=== PATIENT | male | born 1950 | race Caucasian/White ===

== ENCOUNTER 2024-07-03 09:45 | Outpatient (CLI) | payer MEDICARE, OTHER, SELFPAY ==
[2024-07-03 10:02] LABS: Basophils Absolute Auto 0.02 K/mm3 (0.00-0.10); Basophils Percent Auto 0.4 % (0.0-1.0); Eosinophils Absolute Auto 0.14 K/mm3 (0.02-0.50); Eosinophils Percent Auto 2.6 % (1.0-6.0); Hematocrit 40.7 % (37.0-46.0); Hemoglobin 13.8 g/dL (12.4-15.3); Immature Granulocyte Absolute 0.02 K/mm3 (0.00-0.00); Immature Granulocyte Percent A 0.4 % (0.0-0.0); Lymphocytes Absolute Auto 1.01 K/mm3 (1.10-4.50); Lymphocytes Percent Auto 18.7 % (18.0-42.0); Mean Corpuscular HGB Conc 33.9 g/dL (32-36); Mean Corpuscular Hemoglobin 32.1 pg (27.0-31.0); Mean Corpuscular Volume 94.7 fL (78.0-102.0); Mean Platelet Volume 9.2 fl (8.7-11.0); Monocytes Absolute Auto 0.52 K/mm3 (0.10-0.90); Monocytes Percent Auto 9.6 % (2.0-11.0); Neutrophils Absolute Auto 3.68 K/mm3 (1.70-7.20); Neutrophils Percent Auto 68.3 % (50.0-70.0); Platelet Count Result 231 K/mm3 (150-420); Red Cell Distribution Width 14.4 % (11.6-14.4); White Blood Count 5.4 K/mm3 (4.8-10.8)
[2024-07-03 11:21] LABS: Alanine Aminotransferase 28 U/L (16-63); Albumin Level 3.5 g/dL (3.4-5.0); Alkaline Phosphatase 123 U/L (46-116); Anion Gap 7 mmol/L (4-12); Aspartate Amino Transferase 15 U/L (15-37); Bilirubin,Total 0.5 mg/dL (0.00-1.00); Blood Urea Nitrogen 9 mg/dL (7-18); Calcium 8.9 mg/dL (8.5-10.1); Carbon Dioxide 31 mmol/L (21-32); Chloride 99 mmol/L (98-108); Estimated Glomerular Filt Rate > 60; Glucose 283 mg/dL (70-99); Osmolality Calculated 292 mOsm/kg (285-295); Potassium 4.4 mmol/L (3.5-5.1); Sodium 137 mmol/L (136-145); Total Protein 6.1 g/dL (6.4-8.2); Vitamin B12 357 pg/mL (193-986)
[2024-07-03 11:28] LABS: Folic Acid > 20.0 ng/mL (8.6->20)
[2024-07-03 11:48] LABS: Thyroid Stimulating Hormone Reflex 1.13 u/IU/mL (0.36-3.74)
== END 2024-07-03 09:46 | disposition home or self-care (01) ==
PROVIDERS: PCP Family Medicine; Visit Provider Family Medicine
DX: E53.8 Deficiency of other specified B group vitamins (principal); E03.9 Hypothyroidism, unspecified; R53.83 Other fatigue
CPT/HCPCS: 36415; 80053; 82607; 82746; 84443; 85025

== ENCOUNTER 2024-07-05 10:24 | Observation (INO) | payer MEDICARE, OTHER, SELFPAY ==
[2024-07-05] VITALS (27 sets, daily range): BP systolic 85–143; BP diastolic 60–78; PULSE 57–94; RESP 13–24; TEMP 36.1–36.4; O2SAT 90–97; BMI 26.8
--- NOTE | ~2024-07-05 | CT_ITS ---
CT head without contrast Indication: Syncope Technique: Serial scans were obtained through the brain without the administration of contrast. Dose reduction technique was used on this scan by utilizing automated exposure control and iterative recon struction technique. The dose-length product (DLP) was 681.00 mGy-cm. Findings: There is no evidence of intracranial hemorrhage, mass lesion, or acute infarct. The ventri cles and subarachnoid spaces are dilated, consistent with mild atrophy. Low attenuation regions are seen within the periventricular white matter bilaterally, likely representing changes from chronic mi crovascular ischemic disease. There is no evidence of edema, mass effect or midline shift. The visu alized paranasal sinuses and mastoid air cells are clear. Impression: No intracranial hemorrhage, mass, or acute infarct. Atrophy and chronic white matter changes, as above. Reviewed, dictated and finalized at location . Impression: No intracranial hemorrhage, mass, or acute infarct. Atrophy and chronic white matter changes, as above.
--- NOTE | ~2024-07-05 | XR_ITS ---
Portable chest x-ray Comparison: None Clinical History: Syncope Findings: Lungs are clear, without focal consolidation or pleural effusion. Cardiomediastinal silho uette is unremarkable. Bones and soft tissues are unremarkable, aside from right shoulder arthroplast y. Impression: Clear lungs. Reviewed, dictated and finalized at location . Impression: Clear lungs.
--- NOTE | ~2024-07-05 | US_ITS ---
EXAMINATION: US carotid duplex BI DATE: 07/06/2024 08:02 INDICATION: Syncope TECHNIQUE: Grayscale, color Doppler, and pulsed Doppler images of the cervical carotid arteries were obtained. The degree of vessel stenosis is placed in one of the following categories: normal, <50%, 5 0-69%, >=70% but less than near-occlusion, near-occlusion, or total occlusion. Note that percent sten osis relative to normal distal artery lumen diameter is indirectly measured from velocity measurement s as described by Patrick, et al. Radiology 2003; 229:340-346. Notes: Normal: Peak systolic velocity <125 centimeters/sec and no plaque <50%. Peak systolic velocity <125 ( EDV <40; ICA/CCA PSV ratio <2.0; used these factors only a tandem lesions or low cardiac output or co ntralateral disease) 50-69 %: PSV 125-230 (EDV 40-100; ratio 2-4) >= 70% but less than near occlusion: PSV greater than 230 (EDV > 100; ratio> 4.0) Near Occlusion: PSV that is variable; markedly narrowed lumen Occlusion: Absent flow on color/spectral Doppler and no lumen on jara scale. COMPARISON: None. FINDINGS: RIGHT: The right common carotid artery (CCA) peak systolic velocity (PSV) is 91 cm/s. The right internal car otid artery (ICA) PSV is 89 cm/s. The right ICA end-diastolic velocity (EDV) is 26 cm/s. The right IC A/CCA PSV ratio is 1.0. The external carotid artery (ECA) PSV is 68 cm/s. There is antegrade flow in the right vertebral artery. LEFT: The left CCA PSV is 89 cm/s. The left ICA PSV is 69 cm/s. The left ICA EDV is 17 cm/s. The left ICA/C CA PSV ratio is 0.78. The ECA PSV is 83 cm/s. There is antegrade flow in the left vertebral artery. IMPRESSION: 1. Less than 50% stenosis in the right internal carotid artery by sonographic criteria. 2. Less than 50% stenosis in the left internal carotid artery by sonographic criteria. Reviewed, dictated and finalized at location B. IMPRESSION: 1. Less than 50% stenosis in the right internal carotid artery by sonographic trina staton. 2. Less than 50% stenosis in the left internal carotid artery by sonographic twila jonas.
--- NOTE | ~2024-07-05 | CT_ITS ---
Clinical Indication: Pulmonary embolus CT Scan of the Chest with Contrast: Technique: Contiguous sections were acquired throughout the chest after intravenous administration of 100 cc of Omnipaque 350. Dose reduction technique was used on this scan by utilizing automated expos ure control and iterative reconstruction technique. The dose-length product (DLP) was 479.24 mGy-cm. Findings: There is no evidence of any significant mediastinal, hilar or axillary lymphadenopathy. There is no f illing defect in the pulmonary arterial tree to suggest pulmonary embolus. There is no evidence of ao rtic dissection or aneurysm. There is no evidence of pleural or pericardial effusion. The lungs are clear, aside from mild dependent atelectatic changes. Images through the upper abdomen reveal no abnormalities. Impression: No evidence of pulmonary embolus, aortic dissection, or aortic aneurysm. No significant pulmonary abnormality. Reviewed, dictated and finalized at [facility]. Impression: No evidence of pulmonary embolus, aortic dissection, or aortic aneurysm. No significant pulmonary abnormality.
--- NOTE | 2024-07-05 10:33 | ECG_ITS ---
Test Date: 2024-07-05 10:42:14 Measurements Intervals [place] Rate: 60 P: 35 ND: 196 QRS: -34 QRSD: 106 T: -5 QT: 453 QTc: 453 Interpretive Statements SINUS RHYTHM LEFT AXIS DEVIATION [QRS AXIS < -30] NONSPECIFIC T-WAVE ABNORMALITY No previous ECG available for comparison Electronically Signed On 07-06-2024 15:47:14 CDT by Isaac Veronica M.D.
--- NOTE | 2024-07-05 10:33 | ED.SYNCOPE ---
HPI - Syncope General Chief Complaint: Syncope Stated Complaint: Syncope Time Seen by Provider: 07/05/24 10:32 History of Present Illness HPI narrative: patient is 74 years old white male was walking to his room, started feeling dizzy, like his head is so cloudy, patient then slumped over his walker and staff assisted patient to down to the floor. patient does not recall the event,. Currently in the ED his main complaint is feeling dizzy. he reports sometime turning his head to different direction can make the dizziness worse, he denies any relieving factors. Patient reports having similar symptoms roughly 20 years ago secondary to DE. Related Data Home Medications Medication Instructions Recorded Confirmed aspirin 81 mg tablet,delayed 81 mg PO DAILY 06/04/24 07/05/24 release atorvastatin 80 mg tablet 80 mg PO DAILY 06/04/24 07/05/24 calcium carbonate 600 mg PO DAILY 06/04/24 07/05/24 donepezil 5 mg tablet 5 mg PO QHS 06/04/24 07/05/24 folic acid 1 mg tablet 1 mg PO DAILY 06/04/24 07/05/24 isosorbide mononitrate 30 mg 30 mg PO DAILY 06/04/24 07/05/24 tablet,extended release 24 hr lansoprazole 30 mg capsule,delayed 30 mg PO DAILY 06/04/24 07/05/24 release lisinopril 40 mg tablet 40 mg PO DAILY 06/04/24 07/05/24 metformin 500 mg tablet 500 mg PO BID 06/04/24 07/05/24 metoprolol succinate 100 mg 100 mg PO BID 06/04/24 07/05/24 tablet,extended release 24 hr nifedipine 30 mg tablet,extended 30 mg PO DAILY 06/04/24 07/05/24 release tamsulosin 0.4 mg capsule 0.4 mg PO DAILY 06/04/24 07/05/24 Allergies Allergy/AdvReac Type Severity Reaction Status Date / Time Penicillins Allergy Anaphylaxis Verified 07/05/24 10:38 Review of Systems Review of Systems: All systems reviewed & are unremarkable except as noted in HPI and below PMFSH Social History Social History Smoking status: Never smoker Exam Narrative: GENERAL APPEARANCE: WELL-DEVELOPED, WELL-NOURISHED LOOKS ILL, PALE, GRAYISH COLORATION TRYING TO KEEP HIS EYE CLOSED SKIN: PALE HEAD: NORMOCEPHALIC, NONTRAUMATIC EYES: CLEAR CONJUNCTIVA ENT: OROPHARYNX NORMAL, EARS NORMAL, NOSE NORMAL NECK: SUPPLE, NONTENDER CHEST AND RESPIRATORY: AIRWAY PATENT, NO RESPIRATORY DISTRESS, NO ACCESSORY MUSCLE USE HEART: REGULAR RATE/ BRADYCARDIA ABDOMEN: SOFT, NONTENDER, NO ORGANOMEGALY, QUIET BOWEL SOUNDS VASCULAR: NORMAL PERIPHERAL PULSES, NORMAL CAPILLARY REFILL. 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, NO GROSS MOTOR DEFICIT Course Vital Signs Vital signs: Vital Signs Temperature 36.1 C L 07/05/24 10:28 Pulse Rate 60 07/05/24 10:28 Respiratory Rate 20 07/05/24 10:28 Blood Pressure 114/72 07/05/24 10:28 Pulse Oximetry 93 07/05/24 10:28 Oxygen Delivery Nasal Cannula 07/05/24 10:28 Oxygen Flow Rate 4 07/05/24 10:28 Temperature 36.1 C L 07/05/24 10:28 Pulse Rate 58 L 07/05/24 11:16 Respiratory Rate 20 07/05/24 10:28 Blood Pressure 97/69 L 07/05/24 11:16 Pulse Oximetry 93 07/05/24 10:28 Oxygen Delivery Nasal Cannula 07/05/24 10:28 Oxygen Flow Rate 4 07/05/24 10:28 MDM - Syncope MDM Narrative Medical decision making narrative: PATIENT PRESENTS WITH DIZZINESS AND SYNCOPE A VITAL SIGNS ON ARRIVAL SHOWED NO ACUTE ABNORMALITIES PHYSICAL EXAMINATION SHOWED PALE SKIN, STILL COMPLAINING OF DIZZINESS LIKE CLOUDY BRAIN. HE DENIES ANY SPINNING, NAUSEA OR VOMITING OR CHEST PAIN OR SHORTNESS OF BREATH. DIFFERENTIAL DIAGNOSIS INCLUDE: CARDI
[2024-07-05 10:52] LABS: Base Excess ABG -1.8 mmol/L (0-2); HCO3 ABG 24.2 mmol/L (23-29); Oxygen Content ABG 17.3 %vol (16.0-22.0); Oxygen Saturation ABG 87.3 % (95-97); Oxyhemoglobin 86.6 % (94-100); PCO2 ABG 45.8 mmHg (35-45); PO2 ABG 58.1 mmHg (75-85); pH ABG 7.34 (7.35-7.45)
[2024-07-05 10:53] LABS: Device ROOM AIR; Modified Allen's Test Pass; Site Drawn RIGHT RADIAL
[2024-07-05 10:54] LABS: Basophils Absolute Auto 0.02 K/mm3 (0.00-0.10); Basophils Percent Auto 0.4 % (0.0-1.0); Eosinophils Absolute Auto 0.13 K/mm3 (0.02-0.50); Eosinophils Percent Auto 2.4 % (1.0-6.0); Hematocrit 39.6 % (37.0-46.0); Hemoglobin 13.4 g/dL (12.4-15.3); Immature Granulocyte Absolute 0.02 K/mm3 (0.00-0.00); Immature Granulocyte Percent A 0.4 % (0.0-0.0); Lymphocytes Absolute Auto 1.26 K/mm3 (1.10-4.50); Lymphocytes Percent Auto 23.1 % (18.0-42.0); Mean Corpuscular HGB Conc 33.8 g/dL (32-36); Mean Corpuscular Hemoglobin 32.3 pg (27.0-31.0); Mean Corpuscular Volume 95.4 fL (78.0-102.0); Mean Platelet Volume 9.2 fl (8.7-11.0); Monocytes Percent Auto 9.2 % (2.0-11.0); Neutrophils Absolute Auto 3.52 K/mm3 (1.70-7.20); Neutrophils Percent Auto 64.5 % (50.0-70.0); Platelet Count Result 250 K/mm3 (150-420); Red Blood Count 4.15 M/mm3 (4.70-6.10); Red Cell Distribution Width 14.1 % (11.6-14.4); White Blood Count 5.5 K/mm3 (4.8-10.8)
[2024-07-05 11:12] LABS: Partial Thromboplastin Time 23.3 Sec (23.9-30.70); Prothrombin Time 10.9 Seconds (9.50-12.1)
[2024-07-05] MEDS: SODIUM CHLORIDE 0.9% IV 1,000 ML 250 ML IV CONT (11:40)
[2024-07-05 11:50] LABS: Alanine Aminotransferase 29 U/L (16-63); Albumin Level 3.4 g/dL (3.4-5.0); Alkaline Phosphatase 117 U/L (46-116); Anion Gap 7 mmol/L (4-12); Aspartate Amino Transferase 14 U/L (15-37); Bilirubin,Total 0.5 mg/dL (0.00-1.00); Blood Urea Nitrogen 10 mg/dL (7-18); Calcium 8.7 mg/dL (8.5-10.1); Carbon Dioxide 29 mmol/L (21-32); Chloride 98 mmol/L (98-108); Estimated CRCL calculation 69 ml/min; Estimated Glomerular Filt Rate > 60; Glucose 286 mg/dL (70-99); NT Pro B Type Natriuretic Pept 37 pg/mL (0-125); Osmolality Calculated 287 mOsm/kg (285-295); Potassium 4.2 mmol/L (3.5-5.1); Sodium 134 mmol/L (136-145); Total Protein 6.2 g/dL (6.4-8.2)
--- NOTE | 2024-07-05 13:30 | PM.IMHP ---
H&P: HPI History of Present Illness Date/Time: 07/05/24 13:30 Chief Complaint: Syncope Narrative: This is a 74 year old male patient with history of HTN, prior CT x2 with stents, dementia, left retinal artery occlusion with resultant vision loss, type 2 diabetes and HLD who is currently at [facility] under SNF status for therapy related to vision and balance loss after retinal artery occlusion. Patient was discharged from [place] about a month ago and has been getting therapy at the residential since with goal of return home. This morning patient had color change, syncope with abnormal respiratory effort and went unresponsive. Rapid Covid at [facility] was negative. Patient evaluated in ER and found initially to have lower blood pressure and mild hypoxia on ABG. Patient's son states that patient has had syncope in the past, usually associated with [place]. Patient denies chest pain, shortness of breath or any current concerning symptoms. Patient was admitted for telemetry monitoring for possible dysrhythmia, continued IV hydration and further testing (Carotid Doppler/echocardiogram) for cause of syncope. D-Dimer was positive and CTA chest was negative for PE in the ER. Patient is on several antihypertensives which we will hold and monitor blood pressure response to such. Suspect that his medication caused significantly low blood pressure leading to syncope and collapse. Review of Systems Review of Systems: All systems reviewed & are unremarkable except as noted in HPI and below PMFSH Social History Social History Smoking status: Never smoker Smokeless tobacco user: chewing tobacco Second hand tobacco smoke exposure: No Alcohol intake: former Substance use: never Substance use type: does not use Do You Feel Safe in your Home?: Yes Lack of Transportation: No Lack of Food: Never True Current Housing: I Have Housing Concerned About Future Housing: No Difficulty Paying Gas/Electric Bills: No Difficulty Paying for Meds: No Currently Unemployed: No Education: High School Diploma/GED Difficulty w/ Childcare or Family Care: No Spiritual care concerns: No Meds Home Medications and Allergies Home Medications Medication Instructions Recorded Confirmed Type aspirin 81 mg tablet,delayed 81 mg PO DAILY 06/04/24 07/05/24 History release atorvastatin 80 mg tablet 80 mg PO DAILY 06/04/24 07/05/24 History donepezil 5 mg tablet 5 mg PO QHS 06/04/24 07/05/24 History escitalopram oxalate 5 mg tablet 5 mg PO DAILY #90 tabs 06/04/24 07/05/24 Rx (Lexapro) folic acid 1 mg tablet 1 mg PO DAILY 06/04/24 07/05/24 History lansoprazole 30 mg capsule,delayed 30 mg PO DAILY 06/04/24 07/05/24 History release lisinopril 40 mg tablet 40 mg PO DAILY 06/04/24 07/05/24 History metformin 500 mg tablet 500 mg PO BID 06/04/24 07/05/24 History metoprolol succinate 100 mg 100 mg PO BID 06/04/24 07/05/24 History tablet,extended release 24 hr mirabegron 25 mg tablet,extended 25 mg PO DAILY #90 tabs 06/04/24 07/05/24 Rx release 24 hr nifedipine 30 mg tablet,extended 30 mg PO DAILY 06/04/24 07/05/24 History release tamsulosin 0.4 mg capsule 0.4 mg PO DAILY 06/04/24 07/05/24 History ondansetron 4 mg disintegrating 4 mg PO Q8H PRN nausea and 06/28/24 07/05/24 Rx tablet vomiting #90 tabs isosorbide dinitrate 30 mg tablet 30 mg DAILY 07/05/24 07/05/24 History Allergies Allergy/AdvReac Type Severity Reaction Status Date / Time Penicillins Allergy Anaphylaxis Verified 07/05/24 10:38 Vital Signs Vital Signs - 24 hr 07/05/24 10:28 07/05/24 11:13 07/05/24 11:16 Temperature 36.1 C L Pulse Rate 60 59 L 58 L Respiratory Rate 20 Blood Pressure 114/72 105/64 97/69 L Pulse Oximetry 93 Oxygen Delivery Nasal Cannula Oxygen Flow Rate 4 07/05/24 11:16 07/05/24 11:1
[2024-07-05 13:48] LABS: Add Urine Microscopic? YES; Appearance Urine Clear (Clear); Bilirubin Urine Negative (Negative); Blood Urine Negative (Negative); Color Urine Yellow (Yellow); Glucose Urine UA 2+ (Negative); Ketones Urine Negative (Negative); Leukocyte Esterase Ur Negative LEU/UL (Negative); Nitrate Urine Negative (Negative); Protein Urine Trace (Negative); pH Urine 5.5 (5.0-8.0)
[2024-07-05 14:12] LABS: Bacteria Urine Rare /hpf; Mucus Urine Few /lpf; RBC Urine None seen /hpf (0-2); WBC Urine None seen /hpf (0-3)
[2024-07-05 14:18] LABS: Troponin I 5.6 ng/L (0.00-60.4)
--- NOTE | 2024-07-05 14:41 | PC.NURSE ---
Pt came up to the floor from the ER. Admitted for cardiac monitoring post syncopal episode. VSS, afebrile, A/O X2 walks with walker at [place]. Pt and family orientated to the call system and the TV control. Pt and family oriented to visiting hours and how to call for a rapid response.
[2024-07-05 15:01] LABS: Influenza A QL RT-PCR Negative (Negative); Influenza B QL RT-PCR Negative (Negative); RSV RNA, RT-PCR Negative (Negative); SARS-CoV-2 RNA PCR Negative (Negative)
[2024-07-05 15:06] LABS: Magnesium 1.6 mg/dL (1.8-2.4)
[2024-07-05] MEDS: SODIUM CHLORIDE 0.9% IV 1,000 ML 75 ML IV CONT (16:16)
[2024-07-05] MEDS: MAGNESIUM SULF 2 GM/WATER 50ML 2 GM/50 ML BAG IVPB (16:17)
[2024-07-05 17:12] LABS: Glucose Point of Care 241 mg/dl (65-105)
[2024-07-05] MEDS: INSULIN HUMAN LISPRO (*BKC) 1,000 UNITS/10 ML VIAL SUB-Q (17:12)
[2024-07-05 17:35] LABS: Thyroid Stimulating Hormone Reflex 0.98 u/IU/mL (0.36-3.74)
[2024-07-05] MEDS: DONEPEZIL HCL 5 MG TABLET PO (21:06)
[2024-07-05] MEDS: MELATONIN 5 MG TABLET PO (21:06)
[2024-07-05 21:15] LABS: Glucose Point of Care 222 mg/dl (65-105)
[2024-07-06] VITALS (8 sets, daily range): BP systolic 118–155; BP diastolic 68–89; PULSE 63–81; RESP 16; TEMP 36.4–36.5; O2SAT 92–94
[2024-07-06] MEDS: SODIUM CHLORIDE 0.9% IV 1,000 ML 75 ML IV CONT (05:39)
[2024-07-06 05:46] LABS: Basophils Absolute Auto 0.02 K/mm3 (0.00-0.10); Basophils Percent Auto 0.3 % (0.0-1.0); Eosinophils Absolute Auto 0.12 K/mm3 (0.02-0.50); Hemoglobin 12.5 g/dL (12.4-15.3); Immature Granulocyte Absolute 0.03 K/mm3 (0.00-0.00); Immature Granulocyte Percent A 0.5 % (0.0-0.0); Lymphocytes Absolute Auto 0.98 K/mm3 (1.10-4.50); Lymphocytes Percent Auto 16.3 % (18.0-42.0); Mean Corpuscular HGB Conc 33.8 g/dL (32-36); Mean Corpuscular Hemoglobin 31.8 pg (27.0-31.0); Mean Corpuscular Volume 94.1 fL (78.0-102.0); Mean Platelet Volume 8.9 fl (8.7-11.0); Neutrophils Absolute Auto 4.28 K/mm3 (1.70-7.20); Neutrophils Percent Auto 70.9 % (50.0-70.0); Platelet Count Result 200 K/mm3 (150-420); Red Blood Count 3.93 M/mm3 (4.70-6.10); Red Cell Distribution Width 14.1 % (11.6-14.4)
[2024-07-06 06:00] LABS: Alanine Aminotransferase 25 U/L (16-63); Albumin Level 3.1 g/dL (3.4-5.0); Alkaline Phosphatase 104 U/L (46-116); Anion Gap 6 mmol/L (4-12); Aspartate Amino Transferase 12 U/L (15-37); Bilirubin,Total 0.2 mg/dL (0.00-1.00); Blood Urea Nitrogen 10 mg/dL (7-18); Calcium 8.6 mg/dL (8.5-10.1); Carbon Dioxide 30 mmol/L (21-32); Chloride 101 mmol/L (98-108); Estimated CRCL calculation 95 ml/min; Estimated Glomerular Filt Rate > 60; Glucose 176 mg/dL (70-99); Magnesium 1.8 mg/dL (1.8-2.4); Osmolality Calculated 287 mOsm/kg (285-295); Sodium 137 mmol/L (136-145); Total Protein 5.7 g/dL (6.4-8.2)
[2024-07-06] MEDS: ATORVASTATIN 40 MG TABLET 80 MG PO (08:27)
[2024-07-06] MEDS: MIRABEGRON 25 MG ER TABLET PO (08:27)
[2024-07-06] MEDS: ENOXAPARIN 40 MG/0.4 ML SYRINGE SUB-Q (08:27)
[2024-07-06] MEDS: ESCITALOPRAM OXALATE 5 MG TABLET PO (08:27)
[2024-07-06] MEDS: FOLIC ACID 1 MG TABLET PO (08:28)
[2024-07-06] MEDS: METOPROLOL SUCCINATE EXT REL 50 MG TABCR 100 MG PO (08:28)
[2024-07-06] MEDS: PANTOPRAZOLE 40 MG TABLET PO (08:28)
[2024-07-06] MEDS: TAMSULOSIN HCL 0.4 MG CAPSULE PO (08:28)
[2024-07-06] MEDS: ASPIRIN 81 MG ENTERIC TABLET PO (08:28)
--- NOTE | 2024-07-06 09:54 | PM.IMPN ---
Progress Note: A&P Assessment and Plan (1) Syncope and collapse: Code(s): R55 - Syncope and collapse Status: Acute Assessment and Plan: Patient unresponsive with agonal breathing on EMS page out to group home Patient pale and reyes on arrival to ER Bradycardia and lower blood pressure noted Suspect moderate dehydration mixed with multiple antihypertensives led to syncope Admit to Med/Tele to monitor for dysrhythmia Order Carotid Doppler and Echocardiogram with bubble study but consider DC echo if we get medical records that are reassuring Prior history of syncope per patient's son, usually associated with dehydration and working hard in the heat Recent left retinal artery occlusion, no new or worsening focal neurologic findings Hold antihypertensives and slowly reintroduce Continue IV fluids overnight at low maintenance rate Recheck labs in the morning (2) Dizziness: Code(s): R42 - Dizziness and giddiness Status: Acute Assessment and Plan: See 1 (3) Hypoxia: Code(s): R09.02 - Hypoxemia Status: Acute Assessment and Plan: ABG with hypoxia on room air in ER, saturating well on 2 liters/minute on arrival to floor Wean as tolerated Check Covid/flu/RSV swab on admit--all negative May benefit from six minute walk test prior to discharge if not able to fully wean CTA chest and CXR unremarkable (4) CAD (coronary artery disease): Code(s): I25.10 - Atherosclerotic heart disease of [place] coronary artery without angina pectoris Status: Acute Assessment and Plan: Prior ID x2 with stenting each time, 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 Troponin normal x 2 without significant delta between draws and no chest pain Diagnosis history of HFrEF on prior diagnosis list but no echocardiogram on file and denies known CHF history Requesting records from [facility] regarding last Echo on file Metoprolol XL 100 mg BID may need to be reduced on discharge, ordered to resume 0900 on 07/06 at reduced daily dosing Lisinopril 40 mg Daily may need to be reduced on discharge, on hold for now Nifedipine and isosorbide also held for now, I would consider not resuming nifedipine or making it the last to resume (5) HTN (hypertension): Code(s): I10 - Essential (primary) hypertension Status: Acute Assessment and Plan: See above (6) HLD (hyperlipidemia): Code(s): E78.5 - Hyperlipidemia, unspecified Status: Acute Assessment and Plan: Continue statin (7) Dementia: Code(s): F03.90 - Unspecified dementia, unspecified severity, without behavioral disturbance, psychotic disturbance, mood disturbance, and anxiety Status: Acute Assessment and Plan: Family reports patient gets confused with location changes but generally not aggressive states he had good luck with melatonin in the past for sleep so we will order this Plan 74-year-old man [facility] with syncope. Blood pressure low on admission. Antihypertensives were held. He was given IV fluids and his symptoms have resolved. Carotid duplex was negative. Pending echo completion. Suspect this patient can discharge either later today or tomorrow back to SNF. Subjective Date/time seen: 07/06/24 09:54 Interval history: This is a 74 year old male patient with history of HTN, prior ID x2 with stents, dementia, left retinal artery occlusion with resultant vision loss, type 2 diabetes and HLD who is currently at [facility] under SNF status for therapy related to vision and balance loss after retinal artery occlusion. Patient was discharged from [place] about a month ago and has been getting therapy at the group home since with goal of return home. This morning patient had color change, syncope with abnormal respiratory effort and went unresponsive. 07/06: Patient is eating breakfast sitting on edge of bed in no acute distress. He
[2024-07-06 11:31] LABS: Glucose Point of Care 217 mg/dl (65-105)
[2024-07-06] MEDS: INSULIN HUMAN LISPRO (*BKC) 1,000 UNITS/10 ML VIAL SUB-Q (11:39)
--- NOTE | 2024-07-06 12:10 | PM.DS ---
DS: Admitting Diagnosis Discharge Date 07/06 Admitting Diagnosis syncope DS: Discharge Diagnosis Discharge Diagnosis (1) Syncope and collapse: Code(s): R55 - Syncope and collapse Status: Acute Assessment and Plan: Patient unresponsive with agonal breathing on EMS [facility] Patient pale and reyes on arrival to ER Bradycardia and lower blood pressure noted Suspect moderate dehydration mixed with multiple antihypertensives led to syncope Admit to Med/Tele to monitor for dysrhythmia Order Carotid Doppler and Echocardiogram with bubble study but consider DC echo if we get medical records that are reassuring Prior history of syncope per patient's son, usually associated with dehydration and working hard in the heat Recent left retinal artery occlusion, no new or worsening focal neurologic findings Hold antihypertensives and slowly reintroduce Continue IV fluids overnight at low maintenance rate Recheck labs in the morning (2) Dizziness: Code(s): R42 - Dizziness and giddiness Status: Acute Assessment and Plan: See 1 (3) Hypoxia: Code(s): R09.02 - Hypoxemia Status: Acute Assessment and Plan: ABG with hypoxia on room air in ER, saturating well on 2 liters/minute on arrival to floor Wean as tolerated Check Covid/flu/RSV swab on admit--all negative May benefit from six minute walk test prior to discharge if not able to fully wean CTA chest and CXR unremarkable (4) CAD (coronary artery disease): Code(s): I25.10 - Atherosclerotic heart disease of [place] coronary artery without angina pectoris Status: Acute Assessment and Plan: Prior HI x2 with stenting each time, 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 Troponin normal x 2 without significant delta between draws and no chest pain Diagnosis history of HFrEF on prior diagnosis list but no echocardiogram on file and denies known CHF history Requesting records from [facility] regarding last Echo on file Metoprolol XL 100 mg BID may need to be reduced on discharge, ordered to resume 0900 on 07/06 at reduced daily dosing Lisinopril 40 mg Daily may need to be reduced on discharge, on hold for now Nifedipine and isosorbide also held for now, I would consider not resuming nifedipine or making it the last to resume (5) HTN (hypertension): Code(s): I10 - Essential (primary) hypertension Status: Acute Assessment and Plan: See above (6) HLD (hyperlipidemia): Code(s): E78.5 - Hyperlipidemia, unspecified Status: Acute Assessment and Plan: Continue statin (7) Dementia: Code(s): F03.90 - Unspecified dementia, unspecified severity, without behavioral disturbance, psychotic disturbance, mood disturbance, and anxiety Status: Acute Assessment and Plan: Family reports patient gets confused with location changes but generally not aggressive states he had good luck with melatonin in the past for sleep so we will order this Plan 74-year-old man who presents from [facility] as a SNF patient with syncope. Blood pressure low on admission. Antihypertensives were held. He was given IV fluids and his symptoms have resolved. Carotid duplex was negative. Pending echo completion. Suspect this patient can discharge either later today or tomorrow back to SNF. DS: Summary Hospital Course Reason for hospitalization: syncope Hospital Course: This is a 74 year old male patient with history of HTN, prior HI x2 with stents, dementia, left retinal artery occlusion with resultant vision loss, type 2 diabetes and HLD who is currently at [facility] under SNF status for therapy related to vision and balance loss after retinal artery occlusion. Patient was discharged from [place] about a month ago and [facility] with goal of return home. This morning patient had color change, syncope with abnormal respiratory effort and
[2024-07-06] MEDS: lisinopriL 20 MG TABLET PO (12:54)
--- NOTE | 2024-07-06 13:25 | PC.NURSE ---
Patient discharging back to and Rehab. Report called to Sheri BLANCO. 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
--- NOTE | 2024-07-06 14:05 | PC.NURSE ---
Patient discharging back to [facility] and rehab. IV site removed, tip intact. Dressing applied to site. All belongings gathered and sent back to [facility] with patient. All discharge instructions send with patient. Report called to Sheri at [facility], denies any questions at this time. Patient left floor via wheelchair accompanied by [facility] aid. Denies any questions at discharge.
--- NOTE | 2024-07-08 13:43 | PC.NURSE ---
Discharge call back, to skilled nursing, no quetions regarding dc orders sent and faxed to skilled nursing
== END 2024-07-06 14:05 ==
LOC: CHSED 13:00 → CHS2ND 13:18
PROVIDERS: Nurse Practitioner; Admitting Provider Internal Medicine; Emergency Provider Emergency Medicine; PCP Family Medicine; Visit Provider Internal Medicine
DX: R55 Syncope and collapse (principal); R09.02 Hypoxemia; I65.23 Occlusion and stenosis of bilateral carotid arteries; I10 Essential (primary) hypertension; I25.2 Old myocardial infarction; I25.10 Atherosclerotic heart disease of native coronary artery without angina pectoris; F03.90 Unspecified dementia, unspecified severity, without behavioral disturbance, psychotic disturbance, mood disturbance, and anxiety; Z95.5 Presence of coronary angioplasty implant and graft; E11.9 Type 2 diabetes mellitus without complications; E78.5 Hyperlipidemia, unspecified; F17.220 Nicotine dependence, chewing tobacco, uncomplicated; Z79.82 Long term (current) use of aspirin; Z79.84 Long term (current) use of oral hypoglycemic drugs; Z20.822 Contact with and (suspected) exposure to COVID-19
CPT/HCPCS: 36415; 36600; 70450; 71045; 71275; 80053; 81001; 82805; 82948; 83735; 83880; 84443; 84484; 85025; 85380; 85610; 85730; 87637; 93005; 93880; 96361; 96365; 96366; 96372; 99285; A9270; G0378; J1650; J1815; J3475; J7030; Q9967

== ENCOUNTER 2024-07-27 09:10 | Emergency (ER) | payer MEDICARE, OTHER, SELFPAY ==
[2024-07-27] VITALS (32 sets, daily range): BP systolic 103–133; BP diastolic 63–77; PULSE 71–90; RESP 14–24; TEMP 36.7–37; O2SAT 85–97
--- NOTE | ~2024-07-27 | CT_ITS ---
CTA chest PE protocol Ordering provider: Anil Garcia MD History: 74 years Male with . hypoxia, syncopal episode, + d-dimer . Comparison: None. Technique: CT angiogram chest was performed following timed intravenous injection of contrast. Thin s lice axial images and reformatted coronal images were obtained. Three dimensional reformatted images of the chest were also obtained using a [employer] workstation. . Automated exposure control and iterati ve reconstruction technique were employed. The dose-length product was 597.91 mGy-cm. 100 mL Omnipaqu e 350 was given IV. Findings: PULMONARY ARTERIES: No pulmonary embolus. VISUALIZED THORACIC INLET: Normal. MEDIASTINUM: Aorta/coronary arteries: Mild atheromatous disease. Heart/other: The heart is not enlarged. Lymph nodes: No mediastinal or hilar adenopathy. LUNGS: No pulmonary nodules or masses. No infiltrates or effusions. No pneumothorax. VISUALIZED UPPER ABDOMEN: the visualized upper abdomen is normal. MUSCULOSKELETAL: Soft tissues: The superficial soft tissues are normal. Bones: Age appropriate degenerative changes of the spine. IMPRESSION: 1. No pulmonary embolism. 2. No acute cardiopulmonary pathology. Reviewed, dictated and finalized at location A.
--- NOTE | ~2024-07-27 | CT_ITS ---
CT brain wo con Ordering provider: Anil Garcia MD History: 74 years Male with . syncopal episode today/this morning . Comparison: July 05, 2024. Technique: CT of the head without contrast. Additional reduction technique utilized.The dose-length product was 681 mGy-cm. FINDINGS: BRAIN PARENCHYMA AND CSF SPACES: Mild leukoaraiosis and diffuse cortical atrophy. Mild atheromatous d isease. No midline shift, mass effect or hemorrhage. The brain parenchyma and CSF spaces are otherwi se normal. VISUALIZED PARANASAL SINUSES: Well aerated. MASTOIDS: Well aerated. BONES: The bones appear intact. SOFT TISSUES: Visualized nasopharynx is normal. Superficial soft tissues are normal. IMPRESSION: No acute intracranial findings. Reviewed, dictated and finalized at location A.
--- NOTE | 2024-07-27 09:25 | ECG_ITS ---
Test Date: 2024-07-27 09:30:11 Measurements Intervals [place] Rate: 76 P: 51 ND: 194 QRS: -9 QRSD: 106 T: 1 QT: 422 QTc: 477 Interpretive Statements SINUS RHYTHM DELAYED PRECORDIAL R/S TRANSITION BORDERLINE ST-T WAVE ABNORMALITY- INFERIOR LEADS BASELINE WANDER- II, AVF, V1-V6 BORDERLINE ECG Compared to ECG 07/05/2024 10:42:14 Left-axis deviation no longer present Electronically Signed On 07-27-2024 10:01:02 CDT by Pérez Garcia D.O.
--- NOTE | 2024-07-27 09:28 | ED.SYNCOPE ---
HPI - Syncope General Chief Complaint: Syncope Stated Complaint: syncope Time Seen by Provider: 07/27/24 09:27 Source: EMS Mode of arrival: EMS Limitations: no limitations and dementia History of Present Illness HPI narrative: 74 year old male arrives to the Emergency Department via EMS from [facility]. Patient was sitting at breakfast table after eating and had syncopal episode. Patient was diaphoretic. He had no complaints prior. EMS was called and found patient diaphoretic. His FSBS was 251. Patient has a history of dementia. Patient is still somewhat clammy on arrival. His O2 sats were upper 80's. He was placed on O2 4 L and sat 94%. He denies any problems. He states he does not know where he is at, but denies any pain. States no headache, visual changes, chest pain, shortness of breath, nausea, vomiting, diarrhea. Denies any problems. MD complaint: loss of consciousness Onset (ago): minute(s) Prodromal symptoms: none Witnessed: Yes - by Other ([facility] staff) Context: at rest Injuries sustained associated with event: none Current symptoms: none Treatments prior to arrival: none Related Data Home Medications Medication Instructions Recorded Confirmed aspirin 81 mg tablet,delayed 81 mg PO DAILY 06/04/24 07/27/24 release atorvastatin 80 mg tablet 80 mg PO DAILY 06/04/24 07/27/24 donepezil 5 mg tablet 10 mg PO QHS 06/04/24 07/27/24 folic acid 1 mg tablet 1 mg PO DAILY 06/04/24 07/27/24 lansoprazole 30 mg capsule,delayed 30 mg PO BID 06/04/24 07/27/24 release metformin 500 mg tablet 500 mg PO BID 06/04/24 07/27/24 isosorbide dinitrate 30 mg tablet 30 mg PO DAILY 07/05/24 07/27/24 escitalopram oxalate 20 mg tablet 20 mg PO DAILY 07/06/24 07/27/24 (Lexapro) triamcinolone acetonide 0.025 % 1 applic topical BID 07/23/24 07/27/24 topical cream Allergies Allergy/AdvReac Type Severity Reaction Status Date / Time Penicillins Allergy Anaphylaxis Verified 07/27/24 09:32 Review of Systems Review of Systems: All systems reviewed & are unremarkable except as noted in HPI and below Constitutional: Constitutional: Reports as per HPI, Reports no additional constitutional complaints, Denies chills, Denies fever(s) and Denies weakness Eyes: Eyes: Reports as per HPI and Denies change in vision ENT: Reports system reviewed and no additional complaints, except as documented Cardiovascular: Cardiovascular: Reports as per HPI and Denies chest pain Respiratory: Respiratory: Reports as per HPI, Denies cough and Denies dyspnea Gastrointestinal: Gastrointestinal: Reports as per HPI, Denies abdominal pain, Denies diarrhea, Denies nausea and Denies vomiting Genitourinary: Genitourinary: Reports no additional male genitourinary complaints, Denies dysuria and Denies urinary frequency Musculoskeletal: Musculoskeletal: Reports no additional musculoskeletal complaints and Denies myalgias Integumentary/Breasts: Skin/Breast: Reports system reviewed and no additional complaints, except as docu Neurologic: Reports system reviewed and no additional complaints, except as documented, Denies headache(s), Denies focal weakness, Denies numbness and Denies weakness [facility] Social History Social History Smoking status: Never smoker Smokeless tobacco user: chewing tobacco Second hand tobacco smoke exposure: No Alcohol intake: former Substance use: never Substance use type: does not use Do You Feel Safe in your Home?: Yes Lack of Transportation: No Lack of Food: Never True Current Housing: I Have Housing Concerned About Future Housing: No Difficulty Paying Gas/Electric Bills: No Difficulty Paying for Meds: No Currently Unemployed: No Education: High School Diploma/GED Difficulty w/ Childcare or Family Care: No Spiritual care concerns: No Exam Const: General: healthy appearing, no acute distress and alert Nutritional Appearance: well n
[2024-07-27 10:04] LABS: Base Excess ABG -0.2 mmol/L (0-2); Carboxyhemoglobin 0.1 % (0-1.5); HCO3 ABG 25.8 mmol/L (23-29); Methemoglobin ABG 0.4 % (0-1.5); Oxygen Content ABG 18.9 %vol (16.0-22.0); Oxygen Saturation ABG 96.7 % (95-97); Oxyhemoglobin 96.2 % (94-100); PO2 ABG 107.2 mmHg (75-85); Reduced Hemoglobin 3.3 % (0-1.5); pH ABG 7.36 (7.35-7.45)
[2024-07-27 10:06] LABS: Basophils Absolute Auto 0.02 K/mm3 (0.00-0.10); Basophils Percent Auto 0.3 % (0.0-1.0); Eosinophils Percent Auto 1.6 % (1.0-6.0); Hematocrit 39.6 % (37.0-46.0); Hemoglobin 13.4 g/dL (12.4-15.3); Immature Granulocyte Absolute 0.02 K/mm3 (0.00-0.00); Immature Granulocyte Percent A 0.3 % (0.0-0.0); Lymphocytes Absolute Auto 1.02 K/mm3 (1.10-4.50); Lymphocytes Percent Auto 16.4 % (18.0-42.0); Mean Corpuscular HGB Conc 33.8 g/dL (32-36); Mean Corpuscular Hemoglobin 31.8 pg (27.0-31.0); Mean Corpuscular Volume 93.8 fL (78.0-102.0); Mean Platelet Volume 8.8 fl (8.7-11.0); Monocytes Absolute Auto 0.42 K/mm3 (0.10-0.90); Monocytes Percent Auto 6.8 % (2.0-11.0); Neutrophils Absolute Auto 4.63 K/mm3 (1.70-7.20); Neutrophils Percent Auto 74.6 % (50.0-70.0); Platelet Count Result 267 K/mm3 (150-420); Red Blood Count 4.22 M/mm3 (4.70-6.10); Red Cell Distribution Width 13.8 % (11.6-14.4); White Blood Count 6.2 K/mm3 (4.8-10.8)
[2024-07-27 10:09] LABS: Device NASAL CANNULA; Modified Allen's Test Pass; Site Drawn LEFT RADIAL
[2024-07-27 10:28] LABS: D Dimer 1.54 mg/L (0.19-0.50)
[2024-07-27 11:05] LABS: Lactic Acid Reflex 2.8 mmol/L (0.7-2.0)
[2024-07-27 11:07] LABS: Blood Urea Nitrogen 9 mg/dL (9-20); Calcium 8.7 mg/dL (8.4-10.2); Carbon Dioxide 26 mmol/L (22-30); Estimated Glomerular Filt Rate > 60; Glucose 267 mg/dL (65-110); Magnesium 1.7 mg/dL (1.6-2.3); Osmolality Calculated 285 mOsm/kg (285-295); Potassium 3.9 mmol/L (3.4-5.0); Sodium 134 mmol/L (137-145)
[2024-07-27 11:18] LABS: Troponin I < 0.012 ng/mL (0.000-0.034)
[2024-07-27 12:33] LABS: Alanine Aminotransferase 23 U/L (6-50); Alkaline Phosphatase 100 U/L (38-126); Anion Gap 10 mmol/L (4-12); Aspartate Amino Transferase 24 U/L (17-59); Bilirubin,Total 0.6 mg/dL (0.2-1.3); Chloride 98 mmol/L (98-107)
[2024-07-27 12:33] LABS: Add Urine Microscopic? NO; Appearance Urine Clear (Clear); Bilirubin Urine Negative (Negative); Blood Urine Negative (Negative); Color Urine Yellow (Yellow); Glucose Urine UA 1+ (Negative); Ketones Urine Negative (Negative); Leukocyte Esterase Ur Negative (Negative); Nitrate Urine Negative (Negative); Protein Urine Negative (Negative); Urobilinogen Urine 0.2 mg/dL (0.2-1.0)
[2024-07-27 13:04] LABS: Reflex Lactic Acid Yes or No Add Lactic
== END 2024-07-27 12:55 ==
PROVIDERS: Emergency Provider Emergency Medicine; PCP Family Medicine
DX: R55 Syncope and collapse (principal); R73.9 Hyperglycemia, unspecified; F03.90 Unspecified dementia, unspecified severity, without behavioral disturbance, psychotic disturbance, mood disturbance, and anxiety; Z99.81 Dependence on supplemental oxygen; Z79.82 Long term (current) use of aspirin; Z79.899 Other long term (current) drug therapy; Z79.84 Long term (current) use of oral hypoglycemic drugs
CPT/HCPCS: 36415; 36600; 70450; 71275; 80053; 81003; 82375; 82805; 82810; 83050; 83605; 83735; 84484; 85025; 85380; 93005; 99284; Q9967

== ENCOUNTER 2024-08-06 11:11 | Outpatient (CLI) | payer MEDICARE, OTHER, SELFPAY ==
--- NOTE | 2024-08-09 13:20 | WPDHOLTEREM ---
Holter/Event Monitor Holter/Event Monitor Date of procedure: 08/06/24 Holter/Event Procedure: 48 Hr Holter Monitor Indications: Syncope Conclusion: 1. 48 hour holter monitor on 08/06/24. 2. Underlying rhythm is sinus rhythm. HR range 65-126 bpm; average HR 88 bpm. 3. There are 27 premature supraventricular complexes, 1 supraventricular couplet and 1 supraventricular triplet. No supraventricular tachycardia. 4. There are 324 premature ventricular complexes. No ventricular tachycardia. 5. No sinoatrial or atrioventricular blocks. No significant pauses greater than 2 seconds. 6. No symptoms available for correlation.
== END 2024-08-06 11:12 | disposition home or self-care (01) ==
LOC: CHSCARD 11:12
PROVIDERS: PCP Family Medicine; Visit Provider Family Medicine
DX: R55 Syncope and collapse (principal)
CPT/HCPCS: 93225; 93226

== ENCOUNTER 2024-09-09 08:28 | Emergency (ER) | payer MEDICARE, OTHER, SELFPAY ==
--- NOTE | ~2024-09-09 | XR_ITS ---
EXAMINATION: XR chest 1V portable DATE: 09/09/2024 09:12 INDICATION: Syncope. TECHNIQUE: A single frontal view of the chest was obtained. COMPARISON: Chest single view 07/05/2024, chest CT 07/27/2024 FINDINGS: There is mild atelectasis at left lung base. No pleural effusion or pneumothorax. The heart size is normal. There is a total right shoulder arthroplasty. IMPRESSION: 1. Mild atelectasis at left lung base. Reviewed, dictated and finalized at location []
--- NOTE | ~2024-09-09 | CT_ITS ---
EXAMINATION: CT brain wo con DATE: 09/09/2024 09:12 INDICATION: Syncope. TECHNIQUE: Computed tomography (CT) of the head was performed without intravenous contrast. The mA wa s adjusted according to patient size. Iterative reconstruction technique was employed. The dose-lengt h product was 681.00 mGy-cm. COMPARISON: Head CT 07/27/2024 FINDINGS: There are scattered areas of low attenuation in the cerebral white matter. There is no intr acranial hemorrhage, acute infarction, or abnormal intracranial mass lesion. The ventricles are chago l in size. The paranasal sinuses are clear. The orbits are normal. There is a trace right mastoid eff usion. IMPRESSION: 1. Stable extensive nonspecific cerebral white matter disease, which likely represents chronic small vessel ischemic disease. Reviewed, dictated and finalized at location [] IMPRESSION: 1. Stable extensive nonspecific cerebral white matter disease, which likely rep resents chronic small vessel ischemic disease.
--- NOTE | 2024-09-09 08:34 | ECG_ITS ---
Test Date: 2024-09-09 08:48:14 Measurements Intervals [place] Rate: 80 P: 23 [place]: 148 QRS: -22 QRSD: 111 T: 2 QT: 411 QTc: 475 Interpretive Statements SINUS RHYTHM INTRAVENTRICULAR CONDUCTION DELAY BORDERLINE ST-T WAVE ABNORMALITY- INFERIOR LEADS BASELINE ARTIFACT- II, III, AVF BORDERLINE ECG Compared to ECG 07/27/2024 09:30:11 NO SIGNIFICANT CHANGE Electronically Signed On 09-10-2024 06:36:02 CDT by Pérez Garcia D.O.
[2024-09-09 08:35] VITALS: BP 126/71; PULSE 81; RESP 14; TEMP 36.6; O2SAT 91
[2024-09-09 08:48] VITALS: O2SAT 93
--- NOTE | 2024-09-09 08:50 | PC.NURSE ---
covid test administered & handed to [facility]
[2024-09-09 08:56] LABS: Basophils Absolute Auto 0.02 K/mm3 (0.00-0.10); Basophils Percent Auto 0.3 % (0.0-1.0); Eosinophils Absolute Auto 0.15 K/mm3 (0.02-0.50); Hematocrit 39.1 % (37.0-46.0); Hemoglobin 13.2 g/dL (12.4-15.3); Immature Granulocyte Absolute 0.02 K/mm3 (0.00-0.00); Immature Granulocyte Percent A 0.3 % (0.0-0.0); Lymphocytes Percent Auto 28.2 % (18.0-42.0); Mean Corpuscular HGB Conc 33.8 g/dL (32-36); Mean Corpuscular Hemoglobin 31.4 pg (27.0-31.0); Mean Corpuscular Volume 93.1 fL (78.0-102.0); Mean Platelet Volume 9.3 fl (8.7-11.0); Monocytes Percent Auto 10.7 % (2.0-11.0); Neutrophils Absolute Auto 4.36 K/mm3 (1.70-7.20); Neutrophils Percent Auto 58.5 % (50.0-70.0); Platelet Count Result 248 K/mm3 (150-420); Red Cell Distribution Width 12.9 % (11.6-14.4); White Blood Count 7.5 K/mm3 (4.8-10.8)
[2024-09-09 09:14] LABS: Partial Thromboplastin Time 23.4 Sec (23.9-30.70); Prothrombin Time 10.9 Seconds (9.50-12.1)
[2024-09-09 09:23] LABS: Alanine Aminotransferase 19 U/L (16-63); Albumin Level 3.1 g/dL (3.4-5.0); Alkaline Phosphatase 107 U/L (46-116); Anion Gap 9 mmol/L (4-12); Aspartate Amino Transferase < 10 U/L (15-37); Bilirubin,Total 0.5 mg/dL (0.00-1.00); Blood Urea Nitrogen 10 mg/dL (7-18); Calcium 8.6 mg/dL (8.5-10.1); Carbon Dioxide 27 mmol/L (21-32); Chloride 102 mmol/L (98-108); Estimated CRCL calculation 68 ml/min; Estimated Glomerular Filt Rate > 60; Glucose 261 mg/dL (70-99); NT Pro B Type Natriuretic Pept 43 pg/mL (0-125); Osmolality Calculated 294 mOsm/kg (285-295); Potassium 3.7 mmol/L (3.5-5.1); Sodium 138 mmol/L (136-145); Total Protein 6.1 g/dL (6.4-8.2); Troponin I 8.1 ng/L (0.00-60.4)
[2024-09-09 09:28] LABS: Lactic Acid Reflex 2.7 mmol/L (0.4-2.0)
[2024-09-09 09:34] LABS: SARS-CoV-2 RNA PCR Negative (Negative)
[2024-09-09] MEDS: ONDANSETRON INJ 4 MG/2 ML VIAL IV PUSH (09:36)
[2024-09-09 09:46] LABS: Influenza A QL RT-PCR Negative (Negative); Influenza B QL RT-PCR Negative (Negative); RSV RNA, RT-PCR Negative (Negative)
[2024-09-09 09:55] LABS: Add Urine Microscopic? YES; Appearance Urine Clear (Clear); Bilirubin Urine Negative (Negative); Blood Urine Negative (Negative); Color Urine Yellow (Yellow); Glucose Urine UA 3+ (Negative); Ketones Urine Negative (Negative); Leukocyte Esterase Ur Negative LEU/UL (Negative); Nitrate Urine Negative (Negative); Protein Urine 1+ (Negative); Specific Grav Ur >= 1.030 (1.010-1.020); pH Urine 5.5 (5.0-8.0)
[2024-09-09 10:01] LABS: Amorphous Sediment Urine Moderate; Bacteria Urine Trace /hpf; RBC Urine None seen /hpf (0-2); WBC Urine None seen /hpf (0-3)
--- NOTE | 2024-09-09 10:05 | ED.SYNCOPE ---
HPI - Syncope General Chief Complaint: Syncope Stated Complaint: syncope Time Seen by Provider: 09/09/24 08:31 Source: patient and EMS Mode of arrival: EMS Limitations: no limitations History of Present Illness HPI narrative: this is a 74-year-old male intermediate patient presents with an episode of syncope has had previous episodes in the past vasovagal event after eating his breakfast witnessed with no seizure activity no tonic or clonic movements no tongue biting no loss of urine or bowel function. The patient complains of dizziness otherwise there is no chest pain no shortness of breath no headache or blurry vision patient does have a history of dementia. There is no dysuria no flank pain, does have some nausea with no vomiting no abdominal pain. MD complaint: loss of consciousness -: second(s) Description of event: post-event confusion Prodromal symptoms: lightheaded and nausea/vomiting Witnessed: Yes - by Bystander Context: at rest Related Data Home Medications Medication Instructions Recorded Confirmed aspirin 81 mg tablet,delayed 81 mg PO DAILY 06/04/24 09/09/24 release atorvastatin 80 mg tablet 80 mg PO DAILY 06/04/24 09/09/24 donepezil 5 mg tablet 10 mg PO QHS 06/04/24 09/09/24 folic acid 1 mg tablet 1 mg PO DAILY 06/04/24 09/09/24 lansoprazole 30 mg capsule,delayed 30 mg PO BID 06/04/24 09/09/24 release metformin 500 mg tablet 500 mg PO BID 06/04/24 09/09/24 isosorbide dinitrate 30 mg tablet 30 mg PO DAILY 07/05/24 09/09/24 triamcinolone acetonide 0.025 % 1 applic topical BID 07/23/24 09/09/24 topical cream memantine 10 mg tablet 10 mg PO QPM 09/09/24 09/09/24 memantine 10 mg tablet 25 mg PO DAILY 09/09/24 09/09/24 mirabegron 25 mg tablet,extended 25 mg PO DAILY 09/09/24 09/09/24 release 24 hr (Myrbetriq) tamsulosin 0.4 mg capsule (Flomax) 0.4 mg PO HS 09/09/24 09/09/24 Allergies Allergy/AdvReac Type Severity Reaction Status Date / Time Penicillins Allergy Anaphylaxis Verified 09/09/24 08:52 Review of Systems Review of Systems: All systems reviewed & are unremarkable except as noted in HPI and below PMFSH Past Medical History Medical History CAD (coronary artery disease) Dementia Social History Social History Smoking status: Never smoker Smokeless tobacco user: chewing tobacco Second hand tobacco smoke exposure: No Alcohol intake: former Substance use: never Substance use type: does not use Do You Feel Safe in your Home?: Yes Lack of Transportation: No Lack of Food: Never True Current Housing: I Have Housing Concerned About Future Housing: No Difficulty Paying Gas/Electric Bills: No Difficulty Paying for Meds: No Currently Unemployed: No Education: High School Diploma/GED Difficulty w/ Childcare or Family Care: No Spiritual care concerns: No Exam Const: General: no acute distress Nutritional Appearance: well nourished Limitations: no limitations and behavioral limitations Eyes: Conjunctivae: conjunctivae normal Pupils: Equal, round and reactive pupils present EOM: EOMs intact bilaterally Neck: Neck: normal visual inspection Chest: Chest palpation & inspection: normal inspection of the chest Resp: Effort & Inspection: normal respiratory effort Auscultation: clear to auscultation bilaterally Cardio: Rate: regular rate Rhythm: regular rhythm GI: GI Palp: Yes Soft to palpation Auscultation: normal bowel sounds Urinary Catheter: Urinary Catheter: patent and draining and urine clear Back/Spine/Pelvis: Back: no CVA tenderness Skin: General skin exam: normal color Rashes: no rashes Neuro: General: moves all extremities and no meningeal signs Cranial nerves: Yes Nystagmus not present Speech: normal speech Extrem: General: normal to inspection, no clubbing, cyanosis or edema and no pedal edema Course Course Emergency Course: Patient resting comfortably had blood work performed and reviewed and within normal limits EKG shows no acute abnormalities CT scan brain and with chronic findings. Vital Signs Vital signs: Vital Signs Temperature 36.6 C 09/09/24 08:35 Pulse Rate 81 09/09/24 08:35 Respiratory Rate 14 09/09/24 08:35 Blood Pressure 126/71 09/09/24 08:35 Pulse Oximetry 91 09/09/24 08:35 Oxygen Delivery High Flow Nasal Cannula 09/09/24 08:35 Oxygen Flow Rate 2 09/09/24 08:35 Temperature 36.6 C 09/09/24 08:35 Pulse Rate 81 09/09/24 08:35 Respiratory Rate 14 09/09/24 08:35 Blood Pressure 126/71 09/09/24 08:35 Pulse Oximetry 93 09/09/24 08:48 Oxygen Delivery Room Air 09/09/24 08:48 Oxygen Flow Rate 2 09/09/24 08:35 MDM - Syncope Lab Data 09/09/24 08:51 09/09/24 08:51 Labs: Lab Results 09/09/24 09/09/24 Range/Units 08:35 08:51 WBC 7.5 (4.8-10.8) K/mm3 RBC 4.20 L (4.70-6.10) M/mm3 Hgb 13.2 (12.4-15.3) g/dL Hct 39.1 (37.0-46.0) % MCV 93.1 (78.0-102.0) fL MCH 31.4 H (27.0-31.0) pg MCHC 33.8 (32-36) g/dL RDW 12.9 (11.6-14.4) % Plt Count 248 (150-420) K/mm3 MPV 9.3 (8.7-11.0) fl Immature Gran % (Auto) 0.3 H (0.0-0.0) % Neut % (Auto) 58.5 (50.0-70.0) % Lymph % (Auto) 28.2 (18.0-42.0) % Pope % (Auto) 10.7 (2.0-11.0) % Eos % (Auto) 2.0 (1.0-6.0) % Baso % (Auto) 0.3 (0.0-1.0) % Lymph # (Auto) 2.10 (1.10-4.50) K/mm3 Pope # (Auto) 0.80 (0.10-0.90) K/mm3 Eos # (Auto) 0.15 (0.02-0.50) K/mm3 Baso # (Auto) 0.02 (0.00-0.10) K/mm3 Abs Immat Gran (auto) 0.02 H (0.00-0.00) K/mm3 Absolute Neuts (auto) 4.36 (1.70-7.20) K/mm3 Absolute Nucleated RBC 0.00 (0.00-0.00) K/mm3 Nucleated RBC % 0.0 (0-0.0) % PT 10.9 (9.50-12.1) Seconds INR 1.0 APTT 23.4 L (23.9-30.70) Sec Sodium 138 (136-145) mmol/L Potassium 3.7 (3.5-5.1) mmol/L Chloride 102 (98-108) mmol/L Carbon Dioxide 27 (21-32) mmol/L Anion Gap 9 (4-12) mmol/L BUN 10 (7-18) mg/dL Creatinine 0.98 (0.70-1.30) mg/dL Estim Creat Clear Calc 68 ml/min Estimated GFR > 60 (59 - ) Glucose 261 H (70-99) mg/dL Calculated Osmolality 294 (285-295) mOsm/kg Lactic Acid 2.7 H (0.4-2.0) mmol/L Calcium 8.6 (8.5-10.1) mg/dL Total Bilirubin 0.5 (0.00-1.00) mg/dL AST < 10 L (15-37) U/L ALT 19 (16-63) U/L Alkaline Phosphatase 107 (46-116) U/L Troponin I 8.1 (0.00-60.4) ng/L NT-Pro-B Natriuret Pep 43 (0-125) pg/mL Total Protein 6.1 L (6.4-8.2) g/dL Albumin 3.1 L (3.4-5.0) g/dL Urine Color Yellow (Yellow) Urine Appearance Clear (Clear) Urine pH 5.5 (5.0-8.0) Ur Specific [place] >= 1.030 H (1.010-1.020) Urine Protein 1+ H (Negative) Urine Glucose (UA) 3+ H (Negative) Urine Ketones Negative (Negative) Ur Blood (Man) Negative (Negative) Urine Nitrate Negative (Negative) Urine Bilirubin Negative (Negative) Urine Urobilinogen 1.0 (0.2-1.0) mg/dL Leukocyte Esterase Rfl Negative (Negative) GERA/UL Urine RBC None seen (0-2) /hpf Urine WBC None seen (0-3) /hpf Amorphous Sediment Moderate H (None) Urine Bacteria Trace (None) /hpf Influenza A (RT-PCR) Negative (Negative) Influenza B (RT-PCR) Negative (Negative) RSV (RT-PCR) Negative (Negative) SARS-CoV-2 RNA (RT-PCR) Negative (Negative) Critical Care Time Critical Care Time Critical Care Time: No Discharge Plan Discharge Clinical Impression: Vasovagal syncope Patient Disposition: NH [facility]/Asst Living Condition: Stable Instructions: Antibiotic Form Additional Instructions: Advised follow-up with primary within 1 week further evaluation and treatment. Prescriptions: No Action isosorbide dinitrate 30 mg Tablet 30 mg PO DAILY escitalopram oxalate [Lexapro] 20 mg Tablet 20 mg PO DAILY tamsulosin 0.4 mg capsule 0.4 mg PO HS Qty: 30 0RF lisinopril 40 mg tablet 20 mg PO DAILY Qty: 30 0RF memantine 10 mg Tablet 10 mg PO QPM memantine 10 mg Tablet 25 mg PO DAILY tamsulosin [Flomax] 0.4 mg capsule 0.4 mg PO HS mirabegron [Myrbetriq] 25 mg tablet extended release 24 hr 25 mg PO DAILY aspirin 81 mg tablet,delayed release (DR/EC) 81 mg PO DAILY mirabegron 25 mg tablet extended release 24 hr 25 mg PO DAILY Qty: 90 0RF donepezil 5 mg tablet 10 mg PO QHS lansoprazole 30 mg capsule,delayed release(DR/EC) 30 mg PO BID atorvastatin 80 mg tablet 80 mg PO DAILY metformin 500 mg tablet 500 mg PO BID folic acid 1 mg tablet 1 mg PO DAILY triamcinolone acetonide 0.025 % cream 1 applic topical BID ondansetron 4 mg tablet,disintegrating 4 mg PO Q8H PRN (Reason: nausea and vomiting) Qty: 90 0RF Centrum Silver 0.4 mg-300 mcg- 250 mcg tablet 1 tablet PO DAILY Qty: 90 0RF acetaminophen [Tylenol 8 Hour] 650 mg tablet extended release 650 mg PO Q8H PRN (Reason: fever or pain) Qty: 90 0RF amlodipine 10 mg tablet 10 mg PO DAILY Qty: 90 0RF Follow-up/Referrals: Dilshad Lima DO [Primary Care Provider] -
[2024-09-09 10:13] VITALS: BP 92/54; PULSE 82; RESP 14; TEMP 36.3; O2SAT 92
[2024-09-09] MEDS: SODIUM CHLORIDE 0.9% IV 1,000 ML 999 ML IV CONT (10:26)
[2024-09-09 11:09] LABS: Reflex Lactic Acid Yes or No Add Lactic
== END 2024-09-09 11:11 ==
PROVIDERS: Emergency Provider Emergency Medicine; PCP Family Medicine
DX: R55 Syncope and collapse (principal); F03.90 Unspecified dementia, unspecified severity, without behavioral disturbance, psychotic disturbance, mood disturbance, and anxiety; I25.10 Atherosclerotic heart disease of native coronary artery without angina pectoris; Z79.82 Long term (current) use of aspirin; Z79.899 Other long term (current) drug therapy; Z79.84 Long term (current) use of oral hypoglycemic drugs; Z20.822 Contact with and (suspected) exposure to COVID-19
CPT/HCPCS: 36415; 70450; 71045; 80053; 81001; 83605; 83880; 84484; 85025; 85610; 85730; 87637; 93005; 96361; 96374; 99284; J2405; J7030